=== PATIENT | male | born 1950 | race Caucasian/White ===

== ENCOUNTER 2018-06-14 07:42 | Inpatient (IN) | payer OTHER, SELFPAY ==
[2018-06-14 08:05] VITALS: BP 129/54; PULSE 88; RESP 16; TEMP 37.1; O2SAT 97
--- NOTE | 2018-06-14 08:06 | NURSING ---
Pt into room via squad from [facility]. pt positioned in bed for comfort. vital signs stable. pt denies pain at rest. SUMIT Lepe aware pt is here. pt denies needs. callight in reach.
[2018-06-14 08:29] LABS: Absolute Lymphocyte Count 1.16 X10^3/ul (0.83-4.51); Absolute Neutrophil Count 7.1 X10^3/uL (2.0-7.7); Basophil# 0.03 X10^3/uL; Basophil% 0.3 % (0-1); Eosinophil# 0.03 X10^3/uL; Eosinophils% 0.3 % (0-5); Hemoglobin 13.1 g/dl (13.0-16.5); Lymphocyte # 1.16 X10^3/ul (4.0); Lymphocyte % 12.7 % (19-41); Mean Corp Hgb Conc 34.5 g/gl (32-36); Mean Corpuscular Hgb 29.2 pg (27.0-32.0); Mean Corpuscular Volume 84.6 fL (80-94); Mean Platelet Vol. 9.3 fl (6.2-12.0); Monocyte% 8.7 % (0-10); Neutrophil # 7.12 X10^3/uL (2.7-7.7); Neutrophil % 77.9 % (47-70); POSITIVE COUNT NO; POSITIVE DIFFERENTIAL NO; POSITIVE MORPHOLOGY NO; Platelet Count 236 K/mm3 (150-450); RBC Distribution Width CV 13.2 % (11.6-14.6); RBC Distribution Width SD 40.4 fl (35.1-43.9); Red Blood Count 4.49 M/mm3 (4.6-6.2); White Blood Count 9.2 K/mm3 (4.4-11.0)
[2018-06-14 09:26] VITALS: BMI 28.0; BMI 28.2
[2018-06-14] MEDS: Lactated Ringers 1,000 ML 15 ML IV (10:13)
--- NOTE | 2018-06-14 13:20 | HP.PCM_ITS ---
History of Present Illness Date of Admission: 06/14/18 Chief Complaint: left hip pain The patient is a 68 year old M presents today with increased left hip pain. Patient states that he had a total hip replacement about 5 years ago on the left side 2 years ago on the right. He has had no issues with the hip replacement on either side up until 1 month ago. Patient states that about 4 weeks ago he started to note some clicking and catching in the hip and feelings of possible instability. That seemed to progress and become worse until last evening when he was sitting in a chair went to get up and felt his legs go out from underneath him. He had significant pain in his left hip and presented to the emergency department in an outside institution. There x-ray showed a associated trunnion from his femoral head. He was then transferred to [facility]. Patient reports 5 out of 10 pain right now pain is improved with immobilization and pain medicines. Pain is made worse with motion and attempted weightbearing. Patient denies any fevers chills or night sweats or any other complications after his initial surgery. He has not had recent fevers chills or night sweats. He is never been on antibiotics for this hip. Numbness and tingling distally is associated with his current injury. Past Medical History Allergies No Known Allergies Allergy (Verified 06/14/18 09:44) Surgical History: total hip arthroplasty - Bilateral hip arthroplasty 5-1/2 years ago left 2 years ago right, he did pass out after 1 of his hip replacements. Patient reports general anesthesia after last hip replacement Psychiatric History: No pertinent psych hx Lives: Spouse/ Significant Other Smoking Status: Never smoker Tobacco Use: Non-smoker Alcohol: Rare Drugs: None Review of Systems Constitutional: Denies: Chills, Fever, Weight Change HEENT: Denies: Head Aches, Sinus Congestion, Sinus Drainage Cardiovascular: Denies: Chest Pain, Palpitations Respiratory: Denies: Cough, Shortness of breath at rest, Sputum production Gastrointestinal: Denies: Abdominal Pain, Nausea, Vomiting Genitourinary: Denies: Dysuria Musculoskeletal: Reports: Joint Pain - See HPI, Joint Tenderness - See HPI Skin: Denies: Rash, Wounds Neurological: Denies: Numbness, Tingling, Focal weakness Psychiatric: Denies: Anxiety, Depression, Homicidal Ideations, Suicidal Ideations Hematologic/ Lymphatic: Denies: Easy Bruising, Easy Bleeding VTE Information - Inpt Only VTE Present on Admission: No VTE Mechan Device Prophylaxis: SCD's, Knee High GRZEGORZ Hose VTE Pharm Prophylaxis ordered?: No Reason prophylaxis not ordered:: Treatment Not Indicated - Holding DVT prophylaxis until after surgery. Objective: X-rays show dissociation of the femoral trunnion from the femoral head of the left hip. Acetabular and hip components appear well fixed. - Physical Exam General: Alert, Oriented x3, Cooperative HEENT: Atraumatic Oral: Moist Mucosa Neck: No JVD Lungs: - - Nonlabored breathing Cardiovascular: - - Regular pulse rate Abdomen: Non-Distended Extremities: - - Left lower extremity: Skin clean, dry, and intact. Limb is shortened and externally rotated Motor is intact dorsiflexion, EHL and plantar flexion. Sensation is intact to light touch saphenous, carlos,l superficial peroneal, deep peroneal and tibial distributions. Calves are soft and supple. Skin: No rashes, - - Previous incision is well-healed no redness Neurological: Cranial nerves II-XII grossly intact Psych/Mental Status: Normal Affect Vital Signs Temp Pulse Resp BP Pulse Ox 98.8 F 88 16 129/54 H 97 06/14/18 08:05 06/14/18 08:05 06/14/18 08:05 06/14/18 08:05 06/14/18 08:05 Oxygen Delivery Method Room Air Weight: 220 lb Body Mass Index (BMI) 28.2 Intake and Output for Last 24 Hours 06/12/18 06/13/18 06/14/18 23:59 23:59 23:59 Intake Total 20 / 20 Output Total 400 / 400 Balance -380 / -380 Laboratory Tests Past 24 Hrs 06/14/18 08:20 WBC 9.2 RBC 4.49 L Hgb 13.1 Hct 38.0 L MCV 84.6 MCH 29.2 MCHC 34.5 RDW 13.2 RDW Differential 40.4 Plt Count 236 MPV 9.3 Immature Gran % (Auto) 0.100 Neut % (Auto) 77.9 H Lymph % (Auto) 12.7 L [place] % (Auto) 8.7 Eos % (Auto) 0.3 Baso % (Auto) 0.3 Absolute Neuts (auto) 7.1 Absolute Lymphs (auto) 1.16 Total Counted Not Reportable Assessment/Plan Patient has a 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 At this point we discussed treatment options. Patient has no indications of recurrent infection. Treatment options include revision of the femoral component with possible acetabular component revision depending on intraoperative findings of damage to the acetabular component. We also discussed cementing a new acetabular liner however based on patient's age and health recommend biologic fixation of the components. Risks and benefits of the procedure were discussed the patient including but not limited to blood loss, DVTs, PEs, neurovascular damage complex, the risk of anesthesia including loss of life. We also discussed the possible use of an osteotomy in order to remove the implants. Patient demonstrates an understanding and how this will affect his postoperative course including increased pain and possibly delayed recovery. At this time patient will be readied for surgery tomorrow afternoon. He will be n.p.o. after midnight. Antibiotics have been ordered onsite health coach to the operating room. Proper consent has been obtained. [facility] Office:
--- NOTE | 2018-06-14 13:25 | EKG12_ITS ---
Test Reason : PRE OP Blood Pressure : / mmHG Vent. Rate : 067 BPM Atrial Rate : 067 BPM P-R Int : 144 ms QRS Dur : 120 ms QT Int : 408 ms P-R-T Axes : 063 047 021 degrees QTc Int : 431 ms Normal sinus rhythm with sinus arrhythmia Normal ECG No previous ECGs available Confirmed by STUART IBRAHIM, FAY ([id number]), primer expeditor and drier KENY IRWIN ([id number] on 06/20/2018 4:08:45 PM Referred By: Chuy Irwin Confirmed By:FAY DAVIDSON MD
[2018-06-14 14:50] VITALS: BP 146/82; PULSE 66; RESP 16; TEMP 37.2; O2SAT 98
[2018-06-14] MEDS: Acetaminophen 500 MG Tablet 1000 MG PO ×2 (15:01→21:00)
[2018-06-14] MEDS: Ferrous Sulfate 325 MG Tablet PO (16:02)
[2018-06-14] MEDS: Folic Acid 1 MG Tablet PO (16:02)
[2018-06-14 20:02] VITALS: BMI 28.2
[2018-06-14] MEDS: oxyCODONE 5 MG Tablet PO (20:08)
[2018-06-14 20:27] VITALS: O2SAT 94
[2018-06-14 20:31] VITALS: BP 143/76; PULSE 63; RESP 18; TEMP 36.8; O2SAT 96
[2018-06-14] MEDS: Lactated Ringers 1,000 ML 125 ML IV (23:09)
[2018-06-15] VITALS (11 sets, daily range): BP systolic 110–155; BP diastolic 60–91; PULSE 63–77; RESP 16–17; TEMP 36.1–37.7; O2SAT 94–100; BMI 28.2; BMI 28.0
[2018-06-15 00:02] LABS: M R Staph aureus DNA By PCR Negative (Negative); Probe Check PASS; Specimen Processing Control PASS
[2018-06-15] MEDS: Morphine 4 MG/ML Syringe IV (02:29)
[2018-06-15] MEDS: Acetaminophen 500 MG Tablet 1000 MG PO ×2 (05:19→22:21)
[2018-06-15 06:29] LABS: Anion Gap 6 (5-15); BUN 9 mg/dL (7-18); Calcium,Total 8.8 mg/dL (8.5-10.1); Chloride 108 mmol/L (98-107); Creatinine, Serum 0.82 mg/dL (0.70-1.30); EST Glomerular Filtration Rate 100 mL/min (>60); Est Glom Filt Rate - Afr Amer 121 mL/min (>60); Estimated Creatinine Clearance 101.64 ml/min; Glucose 93 mg/dL (74-106); Sodium Level 143 mmol/L (136-145)
--- NOTE | 2018-06-15 10:00 | CASEMGMT ---
RN ABHINAV Face to Face with patient for initial transition planning/care coordination assessment. RN CM introduced self and role at [facility]. Patient lying in bed, alert and oriented. Patient willing to participate in assessment and is able to answer all questions appropriately. Care providers, pharmacy, and demographics verified. Patient lives with in 2 story home. Patient states that he has crutches and lift chair at home. 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 Pt wishes to discharge home and would like outpatient therapy setup at [facility]. Patient states he has no further needs or concerns at this time. CM to follow for discharge planning needs that may arise. Disposition Plan: Patient to discharge home with outpatient therapy, family support, and follow-up plans in place. Terese IRAHETA, RN, CM
--- NOTE | 2018-06-15 12:30 | NURSING ---
PT TO OR VIA BED
--- NOTE | 2018-06-15 13:10 | PCA ---
PT OFF FLOOR
[2018-06-15] MEDS: Cefazolin 2 GM in 0.9% Normal Saline 100 ML IV (14:20)
--- NOTE | 2018-06-15 15:43 | PCA ---
PT OFF FLOOR
[2018-06-15] MEDS: Vancomycin IV 1,000 MG/20 ML Vial 2000 MG OPERA.SITE (16:28)
--- NOTE | 2018-06-15 16:42 | PCM.OPRPT ---
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, trunnion dissociation Post-Operative Diagnosis: Failed left total hip replacement, trunnion dissociation Surgery/Procedure Performed:: Revision left total hip replacement both components Description of Surgical Findings:: Stable hip with equal leg lengths manager express: Herb Acuna Type of Anesthesia:: Spinal Anesthesiologist: Alo Fish Special Medications: 2 g Ancef, 1 g TXA at incision, 1 g TXA closure, 10 mg Decadron, joint cocktail (5 mg Duramorph, 30 mL of 0.5% Ropivicaine, 1000 units of epinephrine, 30 mg of Toradol), 2 g of vancomycin powder in wound Specimen's removed: 3 separate specimens were sent to microbiology Estimated Blood Loss (mL): 500 Fluids Replaced: 1000 mL crystalloid Description of Procedure: Findings: Adequate reduction with stability of the hip and equal leg lengths measured intraoperatively. Components used: 1. Santy taoism modular 19 x 155 stem 2. Santy taoism modular conical body 25+0 mm 3. [place] X3 polyethylene liner, alpha code F, 10 degree hooded 4. Santy Biolox delta 36 mm, 0 mm neck femoral head Brief history operative indications: 68-year-old male with history of left total hip replacement presented to the emergency department with dissociation of the trunnion and femoral head. He was admitted to the hospital. Risks and benefits were discussed with the patient which included but were not limited to blood loss, DVTs, PEs, infection, neurovascular damage, and dislocation. In light of all this patient did agree to proceed with a revision left total hip arthroplasty. Procedure: On the date of procedure the patient's L hip was marked in the preoperative area. Patient was then taken back to the operating room where anesthesia assumed control of the C-spine and airway and administered anesthetic. Patient was transferred to the operating table and placed in the lateral decubitus position with the affected hip up. The patient was secured in the bed with the lateral positioners and leg lengths were checked. The L lower extremity was then prepped out in a sterile fashion using chlorhexidine while the surgeon scrubbed. Upon reentering the room the L lower extremity was draped in the standard orthopedic fashion and the incision was marked. A timeout was called and everyone agreed upon the side, the site, the procedure be performed, antibiotics given, and patient's identity. At this time incision was made through skin using the previous incision and extending approximately distally for increased exposure 1-2 inches, subcutaneous tissue, and fat down to fascia. The fascia was then incised and a Charley retractor was placed. The soft tissue was then cleared from the posterior external rotators were identified. At this point we wanted to identify the dislocated trunnion which was superior to the joint. Once we entered the joint copious amounts of black fluid were expressed from the joint. There was excessive black synovium which needed to be debrided. We carefully debrided this area. We noted that a large pouch tract posteriorly near the area of neurovascular structures. We elected to not aggressively debride this area. We aggressively debrided the posterior capsule of the synovium. We were then able to put the trunnion back in the femoral head and eventually dislocate the hip. Once the hip was dislocated we carefully used osteotomes and a bur to break up the bone implant interface. The extractor mechanism was then placed in the proximal portion of the femoral stem and a back slap was used to extract the implant. Once this was done we directed our attention to the acetabulum. The acetabular liner was closed with examined as well as the metal implant. It did not appear there was any permanent damage and the locking mechanism remained intact. Osteotome was used to remove the acetabular liner and there was noted damage and straightening of the acetabular liner. Once all necessary implants were removed the wound was olga irrigated out with 6 L of normal saline under low-pressure lavage. Attention was directed to the acetabulum where the next 3 polyethylene liner was opened and the 10 degree david was put in the appropriate place and the liner was impacted into place. Liner locking mechanism was checked and verified. Attention was then turned to the femur where the femur was prepped. Initially a canal finder was placed. Then we reamed to a 19 mm in width stem to a depth of 135 mm. The tip of the greater trochanter was used to guide the depth. Once this was done the final stem was opened and impacted into place. We then reamed over the far proximally to ream for the 25 mm body. Once we reamed to 25 mm there is a good fit in the trochanter. The body trial was then impacted into place and screwed down. A -5 mm 36 mm femoral head was initially trialed and the leg lengths were slightly short however we did have good stability of the hip. We then elected to trial a neutral 36 mm femoral head which gave us good leg lengths in a stable hip. Once we are happy with this we noted the position of the femoral neck and appropriate anteversion. We dislocated the hip and disassembled the trials. Final implants were open and the Trivedi taper was impacted into place and final screw was tightened down. Femoral head was an open trunnion was cleaned and impacted into place. Wound was cultured out normal saline and hip was reduced. After adequate reduction the hip remained stable with appropriate leg lengths. The wound was then copiously irrigated with normal saline once more, and hemostasis was obtained. 2 g of vancomycin powder were placed in the joint. The posterior capsule and external rotators were repaired through drill holes to the greater trochanter . Closure was then done using #1 Vicryl to close the fascia. A 2-0 Vicryl interrupted sutures were used to close the subcutaneous skin. Skin wayne were used for final skin closure. A sterile dressing was placed. Patient was awakened by anesthesia [facility] Patient was then transferred to the PACU for recovery. Postoperative plan: Patient will get 24 hours postop antibiotics. Patient will get in-house physical therapy and will be weight-bear as tolerated. Patient will follow up in office in 2 weeks for a wound check and x-rays. Patient was placed on doxycycline as we monitor culture results. 3 months of posterior hip precautions will be used. Grafts/Implants Used: Santy taoism modular - Complications None - Admit VTE Documentation VTE Present on Admission: No VTE Mechan Device Prophylaxis: SCD's, Thigh High GRZEGORZ Hose VTE Pharm Prophylaxis ordered?: Yes
--- NOTE | 2018-06-15 16:53 | OP.PCM_ITS ---
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, trunnion disso ciation Post-Operative Diagnosis: Failed left total hip replacement, trunnion dissociation Surgery/Procedure Performed:: Revision left total hip replacement both components Description of Surgical Findings:: Stable hip with equal leg lengths population health coach: Herb Acuna Type of Anesthesia:: Spinal Anesthesiologist: Alo Fish Special Medications: 2 g Ancef, 1 g TXA at incision, 1 g TXA closure, 10 mg Decadron, joint cocktail (5 mg Duramorph, 30 mL of 0.5% Ropivicaine, 1000 units of epinephrine, 30 mg of Toradol), 2 g of vancomycin powder in wound Specimen's removed: 3 separate specimens were sent to microbiology Estimated Blood Loss (mL): 500 Fluids Replaced: 1000 mL crystalloid Description of Procedure: Findings: Adequate reduction with stability of the hip and equal leg lengths measured intraoperatively. Components used: 1. Santy druze modular 19 x 155 stem 2. Santy druze modular conical body 25+0 mm 3. Santy X3 polyethylene liner, alpha code F, 10 degree hooded 4. [place] Biolox delta 36 mm, 0 mm neck femoral head Brief history operative indications: 68-year-old male with history of left total hip replacement presented to the emergency department with dissociation of the trunnion and femoral head. He was admitted to the hospital. Risks and benefits were discussed with the patient which included but were not limited to blood loss, DVTs, PEs, infection, neurovascular damage, and dislocation. In light of all this patient did agree to proceed with a revision left total hip arthroplasty. Procedure: On the date of procedure the patient's L hip was marked in the preoperative area. Patient was then taken back to the operating room where anesthesia assumed control of the C-spine and airway and administered anesthetic. Patient was transferred to the operating table and placed in the lateral decubitus position with the affected hip up. The patient was secured in the bed with the lateral positioners and leg lengths were checked. The L lower extremity was then prepped out in a sterile fashion using chlorhexidine while the surgeon scrubbed. Upon reentering the room the L lower extremity was draped in the standard orthopedic fashion and the incision was marked. A timeout was called and everyone agreed upon the side, the site, the procedure be performed, antibiotics given, and patient's identity. At this time incision was made through skin using the previous incision and extending approximately distally for increased exposure 1-2 inches, subcutaneous tissue, and fat down to fascia. The fascia was then incised and a Charley retractor was placed. The soft tissue was then cleared from the posterior external rotators were identified. At this point we wanted to identify the dislocated trunnion which was superior to the joint. Once we entered the joint copious amounts of black fluid were expressed from the joint. There was excessive black synovium which needed to be debrided. We carefully debrided this area. We noted that a large pouch tract posteriorly near the area of neurovascular structures. We elected to not aggressively debride this area. We aggressively debrided the posterior capsule of the synovium. We were then able to put the trunnion back in the femoral head and eventually dislocate the hip. Once the hip was dislocated we carefully used osteotomes and a bur to break up the bone implant interface. The extractor mechanism was then placed in the proximal portion of the femoral stem and a back slap was used to extract the implant. Once this was done we directed our attention to the acetabulum. The acetabular liner was closed with examined as well as the metal implant. It did not appear there was any permanent damage and the locking mechanism remained intact. Osteotome was used to remove the acetabular liner and there was noted damage and straightening of the acetabular liner. Once all necessary implants were removed the wound was olga irrigated out with 6 L of normal saline under low-pressure lavage. Attention was directed to the acetabulum where the next 3 polyethylene liner was opened and the 10 de gree david was put in the appropriate place and the liner was impacted into place. Liner locking mechanism was checked and verified. Attention was then turned to the femur where the femur was prepped. Initially a canal finder was placed. Then we reamed to a 19 mm in width stem to a depth of 135 mm. The tip of the greater trochanter was used to guide the depth. Once this was done the final stem was opened and impacted into place. We then reamed over the far proximally to ream for the 25 mm body. Once we reamed to 25 mm there is a good fit in the trochanter. The body trial was then impacted into place and screwed down. A -5 mm 36 mm femoral head was initially trialed and the leg lengths were slightly short however we did have good stability of the hip. We then elected to trial a neutral 36 mm femoral head which gave us good leg lengths in a stable hip. Once we are happy with this we noted the position of the femoral neck and appropriate anteversion. We dislocated the hip and disassembled the trials. Final implants were open and the Trivedi taper was impacted into place and final screw was tightened down. Femoral head was an open trunnion was cleaned and impacted into place. Wound was cultured out normal saline and hip was reduced. After adequate reduction the hip remained stable with appropriate leg lengths. The wound was then copiously irrigated with normal saline once more, and hemostasis was obtained. 2 g of vancomycin powder were placed in the joint. The posterior capsule and external rotators were repaired through drill holes to the greater trochanter . Closure was then done using #1 Vicryl to close the fascia. A 2-0 Vicryl interrupted sutures were used to close the subcutaneous skin. Skin wayne were used for final skin closure. A sterile dressing was placed. Patient was awakened by anesthesia and transferred to the [facility]. Patient was then transferred to the PACU for recovery. Postoperative plan: Patient will get 24 hours postop antibiotics. Patient will get in-house physical therapy and will be weight-bear as tolerated. Patient will follow up in office in 2 weeks for a wound check and x-rays. Patient was placed on doxycycline as we monitor culture results. 3 months of posterior hip precautions will be used. Grafts/Implants Used: Santy druze modular - Complications None - Admit VTE Documentation VTE Present on Admission: No VTE Mechan Device Prophylaxis: SCD's, Thigh High GRZEGORZ Hose VTE Pharm Prophylaxis ordered?: Yes
--- NOTE | 2018-06-15 17:10 | RAD_ITS ---
STUDY: X-RAY - PELVIS AND LEFT HIP REASON FOR EXAM: Male, 68 years old. Postop left hip TECHNIQUE: Radiological exam, hip, unilateral, with pelvis when performed; 2 or 3 views. COMPARISON: June 13, 2018 FINDINGS: Status post revision of left hip prosthesis. Postsurgical changes in the adjacent soft tissue. Skin wayne are noted laterally.. RAD/Hip Min 2 Views (Portable) IMPRESSION: Status post left hip prosthesis revision with post surgical changes. Electronically Signed: Harley Beckett DO at 21:57 EDT Tel [phone], Service support ,
[2018-06-15] MEDS: Lactated Ringers 1,000 ML 999 ML IV (17:15)
[2018-06-15] MEDS: Scopolamine 1mg/72hr Patch 1 PATCH TD (17:35)
--- NOTE | 2018-06-15 17:38 | PCA ---
pt off floor
[2018-06-15] MEDS: Folic Acid 1 MG Tablet PO (18:39)
[2018-06-15] MEDS: Meloxicam 7.5 MG Tablet PO (18:39)
[2018-06-15] MEDS: Ferrous Sulfate 325 MG Tablet PO (18:39)
[2018-06-15] MEDS: Lactated Ringers 1,000 ML 125 ML IV ×2 (20:21→23:48)
[2018-06-15] MEDS: Senna/Docusate Sodium 1 Tablet 2 TABLET PO (22:21)
--- NOTE | 2018-06-15 22:27 | NURSING ---
pt up to dangle with 2 staff assist too dizzy to stand at this time. returned to bed will try again later.
[2018-06-15] MEDS: Cefazolin 1 GM/50 ML BAG IV (22:30)
[2018-06-15] MEDS: Doxycycline 100 MG CAPSULE PO (22:30)
[2018-06-16] MEDS: oxyCODONE 5 MG Tablet PO ×2 (04:11→11:14)
[2018-06-16 04:12] VITALS: BP 100/59; PULSE 64; RESP 16; TEMP 36.8
[2018-06-16] MEDS: Cefazolin 1 GM/50 ML BAG IV (05:41)
[2018-06-16] MEDS: Acetaminophen 500 MG Tablet 1000 MG PO ×3 (05:45→21:10)
[2018-06-16 05:46] LABS: Hematocrit 33.2 % (40-54); Hemoglobin 11.5 g/dl (13.0-16.5); Mean Corp Hgb Conc 34.6 g/gl (32-36); Mean Corpuscular Volume 86.7 fL (80-94); Mean Platelet Vol. 9.9 fl (6.2-12.0); Platelet Count 201 K/mm3 (150-450); RBC Distribution Width CV 12.9 % (11.6-14.6); RBC Distribution Width SD 39.8 fl (35.1-43.9); Red Blood Count 3.83 M/mm3 (4.6-6.2); White Blood Count 9.8 K/mm3 (4.4-11.0)
[2018-06-16] MEDS: Rivaroxaban 10 MG Tablet PO (05:47)
[2018-06-16 05:55] LABS: Scan Indicated on CBC? Y/N NO
[2018-06-16 05:56] LABS: Anion Gap 7 (5-15); BUN 11 mg/dL (7-18); BUN/Creat Ratio 11.7 RATIO (10-20); Calcium,Total 8.5 mg/dL (8.5-10.1); Chloride 103 mmol/L (98-107); Creatinine, Serum 0.94 mg/dL (0.70-1.30); EST Glomerular Filtration Rate 85 mL/min (>60); Est Glom Filt Rate - Afr Amer 102 mL/min (>60); Estimated Creatinine Clearance 88.66 ml/min; Glucose 113 mg/dL (74-106); Potassium 3.9 mmol/L (3.5-5.1); Sodium Level 140 mmol/L (136-145)
--- NOTE | 2018-06-16 06:02 | NURSING ---
pt stood at bedside with 2 assist & walker. took few steps. and then returned to bed.tolerated well
--- NOTE | 2018-06-16 08:32 | PCM.PN.ORT ---
Subjective: The patient was sitting in bed upon examination. Patient denies any chest pain, shortness of breath, dizziness, lightheadedness, nausea or vomiting, or calf pain. Pain is controlled on medications. No adverse overnight events. Patient states the pain feels much better from prior to surgery. Objective: Vital signs stable and afebrile. Patient is able to plantarflex and dorsiflex actively. Sensation is intact to light touch to saphenous, sural, superficial and deep peroneal, and tibial distribution. Dressing is clean dry and intact. Negative Homans bilaterally, negative signs and symptoms of DVT. - Physical Exam General: Alert, Oriented x3, Cooperative, No apparent distress Vital Signs Temp Pulse Resp BP Pulse Ox 98.2 F 64 16 100/59 L 97 06/16/18 04:12 06/16/18 04:12 06/16/18 04:12 06/16/18 04:12 06/15/18 22:11 Oxygen Delivery Method Room Air Weight: 99.79 kg Body Mass Index (BMI) 28.2 Intake and Output for Last 24 Hours 06/14/18 06/15/18 06/16/18 23:59 23:59 23:59 Intake Total 1264 / 1264 3615 / 3615 1049 / 1049 Output Total 2200 / 2200 1850 / 1850 350 / 350 Balance -936 / -936 1765 / 1765 699 / 699 Laboratory Tests Past 24 Hrs 06/16/18 06/16/18 05:10 05:10 WBC 9.8 RBC 3.83 L Hgb 11.5 L Hct 33.2 L MCV 86.7 MCH 30.0 MCHC 34.6 RDW 12.9 RDW Differential 39.8 Plt Count 201 MPV 9.9 Sodium 140 Potassium 3.9 Chloride 103 Carbon Dioxide 30.0 Anion Gap 7 BUN 11 Creatinine 0.94 Estim Creat Clear Calc 88.66 Est GFR (MDRD) Af Amer 102 Est GFR (MDRD) Non-Af 85 BUN/Creatinine Ratio 11.7 Glucose 113 H Calcium 8.5 Medical Necessity - Tobacco Use Smoking Status: Never smoker Tobacco Use: Non-smoker Assessment/Plan 1. S/P revision left total hip arthroplasty POD #1 2. Continue Pain Medications: Tylenol and OxyIR 3. DVT Prophylaxis: Xarelto times 2 weeks 4. PT/OT: Weightbearing as tolerated 5. H & H: 11.5/33.2, asymptomatic 6. Encouraged Incentive Spirometry 7. Continue antibiotics while following cultures: Currently on doxycycline 8. Disposition: Plan will be for discharge home tomorrow.
[2018-06-16 08:39] VITALS: BP 101/58; PULSE 79; RESP 18; TEMP 36.7; O2SAT 97
[2018-06-16] MEDS: Folic Acid 1 MG Tablet PO ×2 (08:42→16:57)
[2018-06-16] MEDS: Senna/Docusate Sodium 1 Tablet 2 TABLET PO ×2 (08:42→21:10)
[2018-06-16] MEDS: Meloxicam 7.5 MG Tablet PO ×2 (08:42→16:57)
[2018-06-16] MEDS: Ferrous Sulfate 325 MG Tablet PO ×2 (08:42→16:57)
[2018-06-16] MEDS: Famotidine 20 MG Tablet PO (08:43)
[2018-06-16] MEDS: Doxycycline 100 MG CAPSULE PO ×2 (08:46→21:11)
--- NOTE | 2018-06-16 09:32 | DCINST_ITS ---
Discharge Diet: No Restrictions Discharge Activity: May Not Drive - while taking narcotic pain medications. May shower in (days): 1 - Turned dressing away from water Ice area for (Minutes): 20 - Every 1-2 hours while awake Weight Bearing Status: Weight bearing as tolerated Elevate: Operative Extremity Additional Activity Instructions:: Wear elastic stockings for 2 weeks. DO NOT use alcohol with narcotic pain medication. DO NOT make important decisions while taking narcotic medication. If you have problems with taking your medication (rash, itching, nausea, etc.) call the office at once. Call your doctor if your incision/area has: Increased Pain/ Swelling, Increased Redness, Foul Smelling Discharge Call your doctor if you observe: Fever of 101 or Higher Remove Dressing in (days):: 3 - Okay to remove dressing on June 20, 2018 Additional Instructions: Follow [facility] postop instructions Allergies/Adverse Reactions: Allergies No Known Allergies Allergy (Verified 06/14/18 09:44) Medications to take at Discharge Acetaminophen [Tylenol] 1,000 mg PO Q8 #90 tab 06/17/18 Doxycycline 100 mg PO BID #12 cap 06/17/18 Famotidine [Pepcid] 20 mg PO DAILY #30 tab 06/17/18 Meloxicam [Mobic] 7.5 mg PO BIDCM #30 tab 06/17/18 Oxycodone [Oxyir] 5 - 10 mg PO Q4H PRN PRN 5 Days #60 tab 06/17/18 Rivaroxaban [Xarelto] 10 mg PO DAILY@0600 #13 tab 06/17/18 Senna/Docusate Sodium [Senokot-S] 2 tab PO BID #20 tab 06/17/18 The following prescriptions were given: Oxycodone [Oxyir] 5 - 10 mg PO Q4H PRN PRN 5 Days #60 tab PRN Reason: Pain Acetaminophen [Tylenol] 1,000 mg PO Q8 #90 tab Famotidine [Pepcid] 20 mg PO DAILY #30 tab Rivaroxaban [Xarelto] 10 mg PO DAILY@0600 #13 tab Doxycycline 100 mg PO BID #12 cap Meloxicam [Mobic] 7.5 mg PO BIDCM #30 tab Senna/Docusate Sodium [Senokot-S] 2 tab PO BID #20 tab Primary Care Physician: Joe Comer MD [Primary Care Provider] - Test Results: Test results from this visit will be discussed in further detail at your follow- up appointment, if applicable. Please Follow Up With: Physical therapy at [facility] Please Follow Up With: Herb Acuna PA-C When: schedule 2 week follow up for xrays @ [facility]
[2018-06-16 14:40] VITALS: BP 119/52; PULSE 78; RESP 18; TEMP 36.9; O2SAT 95
[2018-06-16 20:40] VITALS: BP 124/65; PULSE 84; RESP 16; TEMP 37.2; O2SAT 96
[2018-06-17 02:40] VITALS: BP 134/80; PULSE 78; RESP 16; TEMP 37.1; O2SAT 95
[2018-06-17] MEDS: Acetaminophen 500 MG Tablet 1000 MG PO (05:46)
[2018-06-17] MEDS: Rivaroxaban 10 MG Tablet PO (05:47)
--- NOTE | 2018-06-17 06:29 | PCM.PN.ORT ---
Subjective: The patient was sitting in bed upon examination. Patient denies any chest pain, shortness of breath, dizziness, lightheadedness, nausea or vomiting, or calf pain. Pain is controlled on medications. No adverse overnight events. Overall patient is doing well and ready for discharge home. Patient will do physical therapy at [facility]. Objective: Vital signs stable and afebrile. Patient is able to plantarflex and dorsiflex actively. Sensation is intact to light touch to saphenous, sural, superficial and deep peroneal, and tibial distribution. Dressing is clean dry and intact. Negative Homans bilaterally, negative signs and symptoms of DVT. - Physical Exam General: Alert, Oriented x3, Cooperative, No apparent distress Vital Signs Temp Pulse Resp BP Pulse Ox 98.8 F 78 16 134/80 H 95 06/17/18 02:40 06/17/18 02:40 06/17/18 02:40 06/17/18 02:40 06/17/18 02:40 Oxygen Delivery Method Room Air Weight: 99.79 kg Body Mass Index (BMI) 28.2 Intake and Output for Last 24 Hours 06/15/18 06/16/18 06/17/18 23:59 23:59 23:59 Intake Total 3615 / 3615 1049 / 1049 650 / 650 Output Total 1850 / 1850 750 / 750 2400 / 2400 Balance 1765 / 1765 299 / 299 -1750 / -1750 Microbiology Past 72 Hours 06/15/18 15:45 Gram Stain - Final Tissue - Hip Wound Culture - Preliminary No growth-Final to follow 06/15/18 15:45 Gram Stain - Final Tissue - Hip Wound Culture - Preliminary No growth-Final to follow 06/15/18 15:45 Gram Stain - Final Tissue - Hip Wound Culture - Preliminary No growth-Final to follow Medical Necessity - Tobacco Use Smoking Status: Never smoker Tobacco Use: Non-smoker Assessment/Plan 1. 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 Continue Pain Medications: Tylenol and OxyIR 3. DVT Prophylaxis: Xarelto times 2 weeks 4. PT/OT: Weightbearing as tolerated 5. H & H: Lab work not obtained this morning at this point, asymptomatic 6. Encouraged Incentive Spirometry 7. Continue antibiotics while following cultures: Currently cultures are without growth, currently on doxycycline 8. Disposition: Plan is for discharge home today. Patient will have outpatient physical therapy at [facility]. We will see him back in 2 weeks for postop visit at [place] [facility].
[2018-06-17 06:41] LABS: Hematocrit 35.2 % (40-54); Mean Corp Hgb Conc 34.1 g/gl (32-36); Mean Corpuscular Hgb 29.3 pg (27.0-32.0); Mean Corpuscular Volume 86.1 fL (80-94); Mean Platelet Vol. 10.5 fl (6.2-12.0); Platelet Count 192 K/mm3 (150-450); RBC Distribution Width CV 13.1 % (11.6-14.6); RBC Distribution Width SD 40.7 fl (35.1-43.9); Red Blood Count 4.09 M/mm3 (4.6-6.2); White Blood Count 9.7 K/mm3 (4.4-11.0)
[2018-06-17 06:42] LABS: Scan Indicated on CBC? Y/N NO
[2018-06-17 08:08] VITALS: BP 135/72; PULSE 80; RESP 18; TEMP 36.8; O2SAT 96
[2018-06-17] MEDS: Ferrous Sulfate 325 MG Tablet PO (08:26)
[2018-06-17] MEDS: Meloxicam 7.5 MG Tablet PO (08:27)
[2018-06-17] MEDS: Folic Acid 1 MG Tablet PO (08:27)
[2018-06-17] MEDS: Senna/Docusate Sodium 1 Tablet 2 TABLET PO (08:27)
[2018-06-17] MEDS: Famotidine 20 MG Tablet PO (08:27)
[2018-06-17] MEDS: Doxycycline 100 MG CAPSULE PO (08:27)
--- NOTE | 2018-06-20 07:41 | DS.PCM_ITS ---
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 After discussion with Dr. James Ruby, the patient opted to proceed with a revision left total hip arthroplasty. The patient underwent the above-stated procedure on June 15, 2018. Patient did receive perioperative antibiotics. Intraoperatively was uneventful. For details please see dictated operative note. The patient was placed in thigh-high teds, bilateral SCDs, remained stable in recovery. Patient was admitted to the 3rd floor at [facility]. The patient's pain was managed with the use of IV and p.o. pain medications. Patient participated in physical therapy. Patient was placed on doxycycline for 1 week postoperatively while following cultures. Patient was discharged on postoperative day #3 to home. Patient was given medications stated below. Patient will follow up with [facility] per postop instructions for reassessment. - Physical Exam Vital Signs Temp Pulse Resp BP Pulse Ox 98.2 F 80 18 135/72 H 96 06/17/18 08:08 06/17/18 08:08 06/17/18 08:08 06/17/18 08:08 06/17/18 08:08 Oxygen Delivery Method Room Air Weight: 99.79 kg Body Mass Index (BMI) 28.2 Microbiology Past 72 Hours 06/15/18 15:45 Gram Stain - Final Tissue - Hip Wound Culture - Final No growth aerobically. Anaerobic Culture - Preliminary No growth in 48 hours. 06/15/18 15:45 Gram Stain - Final Tissue - Hip Wound Culture - Final No growth aerobically. Anaerobic Culture - Preliminary No growth in 48 hours. 06/15/18 15:45 Gram Stain - Final Tissue - Hip Wound Culture - Final No growth aerobically. Anaerobic Culture - Preliminary No growth in 48 hours. Discharge Diet: No Restrictions Discharge Activity: May Not Drive - while taking narcotic pain medications. May shower in (days): 1 - Turned dressing away from water Ice area for (Minutes): 20 - Every 1-2 hours while awake Weight Bearing Status: Weight bearing as tolerated Keep extremity elevated above heart level: Operative Extremity Additional Activity Instructions:: Wear elastic stockings for 2 weeks. DO NOT use alcohol with narcotic pain medication. DO NOT make important decisions while taking narcotic medication. If you have problems with taking your m edication (rash, itching, nausea, etc.) call the office at once. Call your doctor if your incision/area has: Increased Pain/ Swelling, Increased Redness, Foul Smelling Discharge Call your doctor if you observe: Fever of 101 or Higher Remove Dressing in (days):: 3 - Okay to remove dressing on June 20, 2018 Home Medications: Medications to take at Discharge Acetaminophen [Tylenol] 1,000 mg PO Q8 #90 tab 06/17/18 Doxycycline 100 mg PO BID #12 cap 06/17/18 Famotidine [Pepcid] 20 mg PO DAILY #30 tab 06/17/18 Meloxicam [Mobic] 7.5 mg PO BIDCM #30 tab 06/17/18 Oxycodone [Oxyir] 5 - 10 mg PO Q4H PRN PRN 5 Days #60 tab 06/17/18 Rivaroxaban [Xarelto] 10 mg PO DAILY@0600 #13 tab 06/17/18 Senna/Docusate Sodium [Senokot-S] 2 tab PO BID #20 tab 06/17/18 Following Prescrptions Were Given to Patient: Oxycodone [Oxyir] 5 - 10 mg PO Q4H PRN PRN 5 Days #60 tab PRN Reason: Pain Acetaminophen [Tylenol] 1,000 mg PO Q8 #90 tab Famotidine [Pepcid] 20 mg PO DAILY #30 tab Rivaroxaban [Xarelto] 10 mg PO DAILY@0600 #13 tab Doxycycline 100 mg PO BID #12 cap Meloxicam [Mobic] 7.5 mg PO BIDCM #30 tab Senna/Docusate Sodium [Senokot-S] 2 tab PO BID #20 tab Primary Care Physician: Joe Comer MD [Primary Care Provider] - Please Follow Up With: Physical therapy at [facility] Please Follow Up With: Herb Acuna PA-C When: schedule 2 week follow up for xrays @ [facility] Additional Instructions: Follow [facility] postop instructions Medical Necessity - Tobacco Use Smoking Status: Never smoker Tobacco Use: Non-smoker Meaningful Use Info Meaningful Use Diagnoses (Choose all that apply): None applicable
== END 2018-06-17 12:22 | disposition home or self-care (01) | DRG 468 ==
PROVIDERS: Specialist; Admitting Provider Orthopaedic Surgery; Family Provider Family Medicine; PCP Family Medicine; Referring Provider Orthopaedic Surgery; Visit Provider Orthopaedic Surgery
PROC: 0SRB04A Replacement of Left Hip Joint with Ceramic on Polyethylene Synthetic Substitute, Uncemented, Open Approach (ICD-10-PCS; CPT 27134; principal; 2018-06-15 13:05)
DX: T84.89XA Other specified complication of internal orthopedic prosthetic devices, implants and grafts, initial encounter (principal); Z96.643 Presence of artificial hip joint, bilateral
CPT/HCPCS: 36415; 73502; 80048; 85025; 85027; 86850; 86900; 87015; 87070; 87075; 87102; 87116; 87205; 87206; 87641; 93005; 97110; 97162; 97165; 97530; 97535; 99251; C1776; J7120; G0463; J2405